=== PATIENT | male | born 1975 | race Hispanic/Latino ===

== ENCOUNTER 2020-11-20 04:24 | Inpatient (IN) | payer OTHER ==
[2020-11-20] MEDS ORDERED: IPRATROPIUM 0.02% NEBU 2.5 ML IH ONE (04:34)
[2020-11-20] MEDS ORDERED: ALBUTEROL 2.5 MG/3 ML NEBU IH ONE (04:34)
--- NOTE | 2020-11-20 04:59 | XRay Report ---
CHEST 1 VIEW INDICATION / CLINICAL INFORMATION: dyspnea. FINDINGS: SUPPORT DEVICES: None. HEART / MEDIASTINUM: No significant abnormality. LUNGS / PLEURA: Severe multifocal bilateral airspace disease especially within the mid and lower aspe ct of the right lung. Signer Name: Nikita Andrade MD Signed: 11/20/2020 4:54 AM Workstation Name: [id number]
[2020-11-20] MEDS ORDERED: cefTRIAXone/NS 1 GM/50 ML 1 GM/50 ML BAG IV ONE (05:14)
[2020-11-20] MEDS ORDERED: SODIUM CHLORIDE 0.9% 1000 ML 1,000 ML IV ONE (05:14)
[2020-11-20] MEDS ORDERED: dexAMETHasone 20 MG/5 ML VIAL IV ONE (05:14)
[2020-11-20] MEDS ORDERED: AZITHROMYCIN/NS 500 MG/250 ML 500 MG/250 ML BAG IV ONE (05:14)
[2020-11-20 05:15] LABS: Basophils % (Auto) 0.6 % (0.0-1.8); Eosinophils % (Auto) 0.1 % (0.0-4.3); Hematocrit 41.3 % (35.5-45.6); Hemoglobin 14.2 gm/dl (11.8-15.2); Lymphocytes # (Auto) 1.8 K/mm3 (1.2-5.4); Lymphocytes % (Auto) 26.9 % (13.4-35.0); Mean Corpuscular HGB Conc 34 % (32-34); Mean Corpuscular Volume 88 fl (84-94); Monocytes # (Auto) 0.3 K/mm3 (0.0-0.8); Monocytes % (Auto) 4.2 % (0.0-7.3); Platelet Count 164 K/mm3 (140-440); Red Cell Distribution Width 14.5 % (13.2-15.2)
[2020-11-20 05:29] LABS: Alanine Aminotransferase 170 units/L (7-56); Albumin 3.9 g/dL (3.9-5); BUN/Creatinine Ratio 15; Blood Urea Nitrogen 16 mg/dL (9-20); Calcium 8.8 mg/dL (8.4-10.2); Hemolysis Index 3
--- NOTE | 2020-11-20 05:57 | Emergency Department Report ---
ED Shortness of Breath HPI - General Chief Complaint: Dyspnea/Respdistress Stated Complaint: SOB/BODYACHE/FEVER/COUCH Source: patient Mode of arrival: Ambulatory Limitations: No Limitations - History of Present Illness Initial Comments: Patient is a 44-year-old white male with a history of chronic heavy tobacco abuse, hypertension and coronary artery disease s/p myocardial infarction x2 who presents to the ED with complaint of acute onset persistent shortness of breath on exertion, wheezing, chest tightness, diffuse body aches and pain, headache, nasal and sinus congestion, subjective intermittent fever and chills for the last 1 week. Patient states that he initially presented at another hospital for evaluation but was handed prescriptions and discharged. Patient states that in the last 3 days he his symptoms got worse, especially worsening shortness of breath on exertion with fever, chest tightness, dizziness, lightheadedness, generalized weakness and fatigue. Patient states that he has not received COVID-19 vaccination. Patient states that no one else at home has had similar symptoms. Patient denies dizziness, syncope, chest pain, abdominal pain, nausea, vomiting, diarrhea, dysuria, urine frequency and urgency, change in vision, sore throat, back pain or hemoptysis. MD Complaint: shortness of breath, cough -: Sudden, week(s) (1) Severity: severe Pain Scale: 7 Quality: aching, sharp Consistency: constant Improves With: nothing Worsens With: exertion, movement, coughing Associated Symptoms: denies other symptoms, chest pain, fever, cough (Chest tightness), sputum production, other (Diffuse body aches and pain) Treatments Prior to Arrival: none - Related Data Home Oxygen Therapy: No Allergies Allergy/AdvReac Type Severity Reaction Status Date / Time codeine Allergy Unknown Verified 11/20/20 04:38 Penicillins Allergy Unknown Verified 11/20/20 04:38 ED Review of Systems ROS: Stated complaint: SOB/BODYACHE/FEVER/COUCH Other details as noted in HPI Constitutional: denies: chills, fever Eyes: denies: eye pain, eye discharge, vision change ENT: congestion. denies: ear pain, throat pain Respiratory: cough, shortness of breath, SOB with exertion, SOB at rest, wheezing Cardiovascular: chest pain (Chest tightness), dyspnea on exertion. denies: palpitations Endocrine: no symptoms reported Gastrointestinal: denies: abdominal pain, nausea, vomiting, diarrhea Genitourinary: denies: urgency, dysuria Musculoskeletal: back pain, arthralgia, myalgia. denies: joint swelling Skin: denies: rash, lesions Neurological: headache. denies: weakness, paresthesias Psychiatric: anxiety. denies: depression Hematological/Lymphatic: denies: easy bleeding, easy bruising ED Past Medical Hx - Past Medical History Previous Medical History?: Yes Hx Hypertension: Yes Hx Heart Attack/AMI: Yes (Acute DE x2) - Surgical History Past Surgical History?: No ED Physical Exam - General Limitations: No Limitations General appearance: alert, in no apparent distress, anxious, in distress (Respiratory distress) - Head Head exam: Present: atraumatic, normocephalic, normal inspection - Eye Eye exam: Present: normal appearance, PERRL, EOMI Pupils: Present: normal accommodation - ENT ENT exam: Present: normal orophraynx, mucous membranes moist, TM's normal bilaterally, normal external ear exam, other (Grossly congested nasal passages) - Neck Neck exam: Present: normal inspection, full ROM - Respiratory Respiratory exam: Present: respiratory distress (Moderate respiratory distress, worse on exertion), wheezes (Diffuse coarse wheezes throughout), rhonchi (Bilateral lower lobe rhonchi), accessory muscle use (Significant use of accessory chest muscle for respiration). Absent: chest wall tenderness - Cardiovascular Cardiovascular Exam: Present: normal rhythm, tachycardia, normal heart sounds. Absent: systolic murmur, diastolic murmur, rubs, gallop - GI/Abdominal GI/Abdominal exam: Present: soft, normal bowel sounds. Absent: tenderness, guarding, rebound, hyperactive bowel sounds, hypoactive bowel sounds, organomegaly - Extremities Exam Extremities exam: Present: normal inspection, full ROM, normal capillary refill - Back Exam Back exam: Present: normal inspection, full ROM. Absent: tenderness, CVA tenderness (R), CVA tenderness (L), muscle spasm, paraspinal tenderness, vertebral tenderness - Neurological Exam Neurological exam: Present: alert, oriented X3, CN II-XII intact, normal gait, reflexes normal - Psychiatric Psychiatric exam: Present: normal affect, normal mood, anxious - Skin Skin exam: Present: warm, dry, intact, normal color. Absent: rash ED Course Vital Signs 11/20/20 04:29 Temperature 98.3 F Pulse Rate 108 H Respiratory 20 Rate Blood Pressure 140/86 O2 Sat by Pulse 93 Oximetry ED Medical Decision Making - Lab Data Result diagrams: 11/20/20 04:48 11/20/20 04:48 - Radiology Data Radiology results: report reviewed, image reviewed [facility] [address] [place] [address] XRay Report Signed Patient: AURORA COLE MR#: [id number] : 1975 Acct:[id number] Age/Sex: 44 / M ADM Date: 11/20/20 Loc: ED Attending Dr: Ordering Physician: TRINI VELARDE Date of Service: 11/20/20 Procedure(s): XR chest 1V ap Accession Number(s): [id number] cc: TRINI VELARDE Fluoro Time In Minutes: CHEST 1 VIEW INDICATION / CLINICAL INFORMATION: dyspnea. FINDINGS: SUPPORT DEVICES: None. HEART / MEDIASTINUM: No significant abnormality. LUNGS / PLEURA: Severe multifocal bilateral airspace disease especially within the mid and lower aspect of the right lung. Signer Name: Nikita Andrade MD Signed: 11/20/2020 4:54 AM Workstation Name: [id number] Transcribed By: BC Dictated By: Nikita Andrade MD Electronically Authenticated By: Nikita Andrade MD Signed Date/Time: 11/20/20453 DD/ 3 TD/TT: - Medical Decision Making This is a 44-year-old white male with a history of chronic heavy tobacco abuse, hypertension and coronary artery disease s/p myocardial infarction x2 who presents to the ED with complaint of acute onset persistent shortness of breath on exertion, wheezing, chest tightness, diffuse body aches and pain, headache, nasal and sinus congestion, subjective intermittent fever and chills for the last 1 week. Patient states that he initially presented at another hospital for evaluation but was handed prescriptions and discharged. Patient states that in the last 3 days he his symptoms got worse, especially worsening shortness of breath on exertion with fever, chest tightness, dizziness, lightheadedness, generalized weakness and fatigue. Patient states that he has not received COVID-19 vaccination. Patient states that no one else at home has had similar symptoms. In the ED, patient is alert and oriented x3, tachycardic and afebrile in triage but appeared to be in respiratory distress, with oxygen saturation of 93% in room air but patient actively using chest wall accessory muscles for respiration with significant respiratory effort, and on exertion patient's oxygen saturation drops to 88% in room air. Patient was treated in the ED with DuoNeb in the ratio of 10:1, Decadron 10 mg IV x1, normal saline 1 L IV bolus x1, and labs were also drawn. Patient was placed on nasal cannula oxygen at 2 L/min. Chest x-ray showed severe multifocal bilateral airspace disease especially within the mid and lower aspect of the right lung. Initial lab test results showed AST of 174 and ALT of 170. The rest of the initial lab test results were nonactionable. Patient case was discussed with the ED attending physician Dr. Molly Pelletier who agreed the plan of care to admit the patient to the hospital. More tests were ordered. I therefore paged and discussed the patient's case with the hospitalist physician on-call Dr. Booth who admitted the patient to the hospital. - Differential Diagnosis Covid pneumonia; CAP; ACS; PE; COPD/ASTHMA; URI; Dissection Critical Care Time: Yes (45 minutes) Critical care time in (mins) excluding proc time.: 45 Critical care attestation.: If time is entered above; I have spent that time in minutes in the direct care of this critically ill patient, excluding procedure time. 45 minutes of critical care time spent on reviewing lab test results, imaging reports, patient education and counseling as well as consultations with other specialists and chart review and completion. Critical Care Time: 45 minutes of critical care time spent on reviewing lab test results, imaging reports, patient education and counseling as well as consultations with other specialists and chart review and completion. ED Disposition Clinical Impression: Acute hypoxemic respiratory failure due to severe acute respiratory syndrome coronavirus 2 (SARS-CoV-2) disease, Suspected 2019 novel coronavirus infection, SOB (shortness of breath) on exertion Community acquired pneumonia Qualifiers: Laterality: right Lung location: lower lobe of lung Qualified Code(s): J18.9 - Pneumonia, unspecified organism Disposition: 02 [facility]ORT TERM [facility]OS[facility] Is pt being admited?: Yes Does the pt Need Aspirin: No Condition: Stable Instructions: Bacterial Pneumonia (ED), Shortness of Breath, Adult, Easy-to- Read, COVID-19 Frequently Asked Questions, Cough, Adult, [id number], Community-Acquired Pneumonia, Adult, [id number] Time of Disposition: 06:06 Print Language: ARGENTINE
[2020-11-20] MEDS ORDERED: HYDROmorphone 1 MG/1 ML INJ IV PRN (06:13)
[2020-11-20] MEDS ORDERED: ACETAMINOPHEN 325 MG TAB PO PRN ×2 (06:13→12:33)
[2020-11-20] MEDS ORDERED: ALBUTEROL 2.5 MG/3 ML NEBU IH PRN (06:13)
[2020-11-20] MEDS ORDERED: ONDANSETRON 4 MG/2 ML INJ IV PRN (06:13)
--- NOTE | 2020-11-20 06:22 | History and Physical Report ---
History of Present Illness Date of examination: 11/20/20 Date of admission: 11/20/20 Chief complaint: Shortness of breath Respiratory distress History of present illness: 44-year old male with past medical history of heavy tobacco abuse, hypertension and coronary artery disease s/p myocardial infarction x2 was brought to the emergency room because of acute onset persistent shortness of breath on exertion, wheezing, chest tightness, diffuse body aches and pain, headache, nasal and sinus congestion, subjective intermittent fever and chills for the last 1 week. Patient states that he initially presented at another hospital for evaluation but was handed prescriptions and discharged. Patient states that in the last 3 days he his symptoms got worse, especially worsening shortness of breath on exertion with fever, chest tightness, dizziness, lightheadedness, g eneralized weakness and fatigue. Patient states that he has not received COVID- 19 vaccination. Patient states that no one else at home has had similar symptoms. Patient denies dizziness, syncope, chest pain, abdominal pain, nausea, vomiting, diarrhea, dysuria, urine frequency and urgency, change in vision, sore throat, back pain or hemoptysis. In the emergency room patient chest x-ray showed severe multifocal bilateral airspace disease especially within the medial and lower aspect of the right lung. We are going to admit the patient covid pneumonia. Med rec is not ready yet. Advance discharge planning is initiated Past History Past Medical History: CAD, hypertension, other (Tobacco abuse) Medications and Allergies Allergies Allergy/AdvReac Type Severity Reaction Status Date / Time codeine Allergy Unknown Verified 11/20/20 04:38 Penicillins Allergy Unknown Verified 11/20/20 04:38 Review of Systems All systems: negative Constitutional: fever, chills (Dizziness), fatigue, weakness, other (Body ache, nasal congestion) Cardiovascular: shortness of breath, dyspnea on exertion Respiratory: cough, shortness of breath, dyspnea on exertion Exam - Constitutional Vitals: Temp Pulse Resp BP Pulse Ox 98.3 F 108 H 20 140/86 93 11/20/20 04:29 11/20/20 04:29 11/20/20 04:29 11/20/20 04:29 11/20/20 04:29 General appearance: Present: no acute distress, well-nourished - EENT Eyes: Present: PERRL ENT: hearing intact, clear oral mucosa - Neck Neck: Present: supple, normal ROM - Respiratory Respiratory effort: normal Respiratory: bilateral: diminished - Cardiovascular Heart Sounds: Present: S1 & S2. Absent: rub, click - Extremities Extremities: pulses symmetrical, No edema Peripheral Pulses: within normal limits - Abdominal General gastrointestinal: Present: soft, non-tender, non-distended, normal bowel sounds Male genitourinary: Present: normal - Integumentary Integumentary: Present: clear, warm, dry - Musculoskeletal Musculoskeletal: gait normal, strength equal bilaterally - Psychiatric Psychiatric: appropriate mood/affect, intact judgment & insight - Neurologic Neurologic: CNII-XII intact, moves all extremities HEART Score - HEART Score Troponin: Troponin T 0.011 ng/mL (0.00-0.029) 11/20/20 04:48 Results - Labs CBC & Chem 7: 11/20/20 04:48 11/20/20 04:48 Labs: Laboratory Last Values WBC 6.8 K/mm3 (4.5-11.0) 11/20/20 04:48 RBC 4.70 M/mm3 (3.65-5.03) 11/20/20 04:48 Hgb 14.2 gm/dl (11.8-15.2) 11/20/20 04:48 Hct 41.3 % (35.5-45.6) 11/20/20 04:48 MCV 88 fl (84-94) 11/20/20 04:48 MCH 30 pg (28-32) 11/20/20 04:48 MCHC 34 % (32-34) 11/20/20 04:48 RDW 14.5 % (13.2-15.2) 11/20/20 04:48 Plt Count 164 K/mm3 (140-440) 11/20/20 04:48 Lymph % (Auto) 26.9 % (13.4-35.0) 11/20/20 04:48 [place] % (Auto) 4.2 % (0.0-7.3) 11/20/20 04:48 Eos % (Auto) 0.1 % (0.0-4.3) 11/20/20 04:48 Baso % (Auto) 0.6 % (0.0-1.8) 11/20/20 04:48 Lymph # (Auto) 1.8 K/mm3 (1.2-5.4) 11/20/20 04:48 [place] # (Auto) 0.3 K/mm3 (0.0-0.8) 11/20/20 04:48 Eos # (Auto) 0.0 K/mm3 (0.0-0.4) 11/20/20 04:48 Baso # (Auto) 0.0 K/mm3 (0.0-0.1) 11/20/20 04:48 Seg Neutrophils % 68.2 % (40.0-70.0) 11/20/20 04:48 Seg Neutrophils # 4.6 K/mm3 (1.8-7.7) 11/20/20 04:48 Sodium 136 mmol/L (137-145) L 11/20/20 04:48 Potassium 3.9 mmol/L (3.6-5.0) 11/20/20 04:48 Chloride 100.6 mmol/L (98-107) 11/20/20 04:48 Carbon Dioxide 27 mmol/L (22-30) 11/20/20 04:48 Anion Gap 12 mmol/L 11/20/20 04:48 BUN 16 mg/dL (9-20) 11/20/20 04:48 Creatinine 1.1 mg/dL (0.8-1.3) 11/20/20 04:48 Estimated GFR > 60 ml/min 11/20/20 04:48 BUN/Creatinine Ratio 15 % 11/20/20 04:48 Glucose 109 mg/dL (75-100) H 11/20/20 04:48 Lactic Acid 0.80 mmol/L (0.7-2.0) 11/20/20 05:22 Calcium 8.8 mg/dL (8.4-10.2) 11/20/20 04:48 Total Bilirubin 0.50 mg/dL (0.1-1.2) 11/20/20 04:48 AST 174 units/L (5-40) H 11/20/20 04:48 ALT 170 units/L (7-56) H 11/20/20 04:48 Alkaline Phosphatase 80 units/L (35-129) 11/20/20 04:48 Troponin T 0.011 ng/mL (0.00-0.029) 11/20/20 04:48 Total Protein 6.6 g/dL (6.3-8.2) 11/20/20 04:48 Albumin 3.9 g/dL (3.9-5) 11/20/20 04:48 Albumin/Globulin Ratio 1.4 % 11/20/20 04:48 - Imaging and Cardiology Chest x-ray: report reviewed Assessment and Plan VTE prophylaxis?: Chemical Plan of care discussed with patient/family: Yes - Patient Problems (1) Acute hypoxemic respiratory failure due to severe acute respiratory syndrome coronavirus 2 (SARS-CoV-2) disease Current Visit: Yes Status: Acute Plan to address problem: Admit the patient to the medical telemetry. Oxygen via nasal catheter per minute. Albuterol via nebulizer every 4 hours as needed. Levaquin 750 mg IV daily. Dexamethasone 6 mg IV daily. We do the blood cultures sputum culture. We will do the Covid PCR and follow Covid inflammatory marker. We also consult pulmonary as well as infectious disease for evaluation. Recheck CBC BMP in the morning (2) Suspected 2019 novel coronavirus infection Current Visit: Yes Status: Acute Plan to address problem: Oxygen via nasal catheter per minute. Albuterol via nebulizer every 4 hours as needed. Levaquin 750 mg IV daily. Dexamethasone 6 mg IV daily. We do the blood cultures sputum culture. We will do the Covid PCR and follow Covid inflammatory marker. We also consult pulmonary as well as infectious disease for evaluation. Recheck CBC BMP in the morning (3) Community acquired pneumonia Current Visit: Yes Status: Acute Qualifiers: Laterality: right Lung location: lower lobe of lung Qualified Code(s): J18.9 - Pneumonia, unspecified organism Plan to address problem: Oxygen via nasal catheter per minute. Albuterol via nebulizer every 4 hours as needed. Levaquin 750 mg IV daily. We do the blood cultures sputum culture. We also consult pulmonary as well as infectious disease for evaluation. Recheck CBC BMP in the morning (4) Hypertension Current Visit: Yes Status: Acute Plan to address problem: Hydralazine 10 mg every 6 hours as needed. We will continue the home medication (5) Coronary artery disease Current Visit: Yes Status: Acute Plan to address problem: Stable. We will continue home medication. We will monitor the patient closely (6) DVT prophylaxis Current Visit: Yes Status: Acute Plan to address problem: Heparin 5000 units subcu every 8 hours for DVT prophylaxis. Pepcid 20 mg p.o. twice daily for GI prophylaxis. Patient is a full code
[2020-11-20] MEDS ORDERED: hydrALAZINE 20 MG/1 ML INJ IV PRN ×2 (06:26→12:33)
[2020-11-20 06:40] VITALS: BP 131/74
[2020-11-20 06:43] LABS: C-Reactive Protein 0.8 mg/dL (0.00-1.30)
[2020-11-20] MEDS ORDERED: FAMOTIDINE 20 MG TAB PO SCH (10:00)
[2020-11-20] MEDS ORDERED: dexAMETHasone 4 MG/ML VIAL IV SCH (10:00)
--- NOTE | 2020-11-20 10:22 | Electrocardiograph Report ---
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
[2020-11-20] MEDS ORDERED: HYDROcodone/ACETAMINOPHEN 5-325 MG TAB PO PRN (12:33)
[2020-11-20] MEDS ORDERED: ALBUTEROL 8.5 GM MDI INHALATION IH PRN (12:34)
[2020-11-20] MEDS ORDERED: HEPARIN 5,000 UNIT/1 ML VIAL SUB-Q SCH (14:00)
[2020-11-20] MEDS ORDERED: INSULIN REGULAR, HUMAN 100 UNITS/1 ML SUB-Q SCH (16:30)
--- NOTE | 2020-11-20 21:21 | Event Note ---
Date: 11/20/20 Pt wanted/needed to leave, pt urged to stay, provider notified AMA Form signed & reviewed with the Patient Any Patient questions answered & Patient voiced understanding Asked Patient if there was anything else we could do & Pt replied no. Patient is awake alert oriented x3. Patient left AMA
== END 2020-11-20 07:04 | disposition left against medical advice (07) | DRG 177 ==
LOC: ED 04:24 → 3A 06:13
PROVIDERS: ADMIT Hospitalist; ATTEND Internal Medicine
DX: U07.1 COVID-19 (principal); J96.01 Acute respiratory failure with hypoxia; J12.82 Pneumonia due to coronavirus disease 2019; F17.210 Nicotine dependence, cigarettes, uncomplicated; I10 Essential (primary) hypertension; I25.10 Atherosclerotic heart disease of native coronary artery without angina pectoris; I25.2 Old myocardial infarction; Z88.5 Allergy status to narcotic agent; Z88.0 Allergy status to penicillin
CPT/HCPCS: 36415; 71045; 80053; 82140; 82728; 82947; 83615; 84145; 84484; 85025; 85379; 86140; 87040; 93005; 96365; 96375; G0378; J0456; J1100; J7030